=== PATIENT | male | born 2000 | race Caucasian/White ===

== ENCOUNTER 2018-03-12 20:51 | Emergency (ER) | payer OTHER ==
[2018-03-12] MEDS ORDERED: Lidocaine 2% VISCOUS* 15 ML UDC PO ONE (23:12)
--- NOTE | 2018-03-13 00:44 | ED ---
Throat Pain/Nasal Congestion - HPI Summary HPI Summary: Complains of sore throat, fever, fatigue 3 days. Negative strep test . Denies lucero, neck stiffness, cough, CP, SOB, N/V/D, abdomen pain, change in urinary BM. Medical history is none. - History of Current Complaint Chief Complaint: EDFever Time Seen by Provider: 03/12/18 22:51 Hx Obtained From: Patient Onset/Duration: Gradual Onset Severity: Mild Associated Signs And Symptoms: Positive: Negative Cough: None - Allergies/Home Medications Allergies/Adverse Reactions: Allergies Allergy/AdvReac Type Severity Reaction Status Date / Time ibuprofen [From Advil] Allergy Hives Verified 03/12/18 21:22 PMH/Surg Hx/FS Hx/Imm Hx Endocrine/Hematology History: Denies: Hx Anticoagulant Therapy Cardiovascular History: Denies: Hx Cardiac Arrest History: Denies: Hx Dialysis EENT History: Denies: Hx Deafness Neurological History: Denies: Hx CVA Infectious Disease History: No Infectious Disease History: Denies: Traveled Outside the [place] in Last 30 Days - Social History Alcohol Use: Rare Substance Use Type: Reports: Marijuana Substance Use Comment - Amount & Last Used: In the past, not in the past month Smoking Status (MU): Never Smoked Tobacco Review of Systems Positive: Fever Eyes: Negative Positive: Sore Throat Cardiovascular: Negative Respiratory: Negative Gastrointestinal: Negative Genitourinary: Negative Musculoskeletal: Negative Skin: Negative Neurological: Negative Psychological: Normal All Other Systems Reviewed And Are Negative: Yes Physical Exam Triage Information Reviewed: Yes Vital Signs On Initial Exam: Initial Vitals Temp Pulse Resp BP Pulse Ox 99.3 F 100 16 120/75 100 03/12/18 21:19 03/12/18 21:19 03/12/18 21:19 03/12/18 21:19 03/12/18 21:19 Vital Signs Reviewed: Yes Appearance: Positive: Well-Appearing Skin: Positive: Warm Head/Face: Positive: Normal Head/Face Inspection Eyes: Positive: Normal ENT: Positive: Pharyngeal erythema, TMs normal, Tonsillar swelling, Tonsillar exudate, Uvula midline. Negative: Trismus, Muffled voice, Hoarse voice Neck: Positive: Supple Respiratory/Lung Sounds: Positive: Clear to Auscultation Cardiovascular: Positive: Normal Abdomen Description: Positive: Nontender Musculoskeletal: Positive: Normal Neurological: Positive: Normal Psychiatric: Positive: Normal AVPU Assessment: Alert - [place] Coma Scale Best Eye Response: 4 - Spontaneous Best Motor Response: 6 - Obeys Commands Best Verbal Response: 5 - Oriented Coma Scale Total: 15 Diagnostics - Vital Signs Vital Signs Temp Pulse Resp BP Pulse Ox 03/12/18 22:53 100.8 F 108 18 138/71 100 03/12/18 21:19 99.3 F 100 16 120/75 100 - Laboratory Lab Results: Lab Results 03/12/18 03/12/18 Range/Units 22:58 23:41 Monoscreen Positive A (Negative) Group A Strep Rapid Negative (Negative) Lab Statement: Any lab studies that have been ordered have been reviewed, and results considered in the medical decision making process. EENT Course/Dx - Course Course Of Treatment: Complains of sore throat, fever, fatigue 3 days. Negative strep test . Denies lucero, neck stiffness, cough, CP, SOB, N/V/D , abdomen pain, change in urinary BM. Medical history is none. Negative strep. Positive mononucleosis. - Diagnoses Provider Diagnoses: Mononucleosis Discharge - Sign-Out/Discharge Documenting (check all that apply): Discharge/Admit/Transfer - Discharge Plan Condition: Stable Disposition: HOME Prescriptions: Lidocaine 2% VISCOUS* [Xylocaine 2% Viscous*] 15 ml SWISH SPIT Q6H PRN #1 btl PRN Reason: Pain Patient Education Materials: Mononucleosis (ED) Forms: *Work Release Referrals: No Primary Care Phys,NOPCP [Primary Care Provider] - [facility] [Outside] Additional Instructions: Avoid contact sports for 1-2 months. Follow-up with primary care. Tylenol or ibuprofen for fever control. Drink plenty of fluids. Return to the ED for any new or worsening symptoms - Billing Disposition and Condition Condition: STABLE Disposition: Home
[2018-03-13 01:35] VITALS: BP 103/70
== END 2018-03-13 01:30 | disposition home or self-care (01) ==
LOC: ED 20:51
DX: B27.90 Infectious mononucleosis, unspecified without complication (principal); J02.9 Acute pharyngitis, unspecified; R53.83 Other fatigue; R50.9 Fever, unspecified
CPT/HCPCS: 36415; 86308; 87651; 99282